=== PATIENT | male | born 1980 | race Caucasian/White ===

== ENCOUNTER 2016-10-22 19:33 | Emergency (ER) | payer OTHER ==
[~2016-10-22] VITALS: Ht 188 cm; Wt 117.9 kg
[2016-10-22] MEDS ORDERED: NAPROSYN500 MG PO (23:16)
[2016-10-22] MEDS ORDERED: ULTRAM50 MG PO (23:16)
[2016-10-22] MEDS ORDERED: FLEXERIL10 MG PO (23:16)
[2016-10-22 23:30] VITALS: BP 139/87
== END 2016-10-22 23:32 | disposition home or self-care (01) ==
LOC: EME 19:33
DX: S29.012A Strain of muscle and tendon of back wall of thorax, initial encounter (principal); S39.012A Strain of muscle, fascia and tendon of lower back, initial encounter; S16.1XXA Strain of muscle, fascia and tendon at neck level, initial encounter; V49.50XA Passenger injured in collision with unspecified motor vehicles in traffic accident, initial encounter
CPT/HCPCS: 72040; 72070; 72100; 99281; 99283